=== PATIENT | female | born 1960 | race Caucasian/White ===

== ENCOUNTER → 2020-07-29 | Outpatient (CLI) | payer MEDICARE, OTHER | LOC: HEART 5 11:25 | DX: D86.0 Sarcoidosis of lung (principal); R94.2 Abnormal results of pulmonary function studies | CPT/HCPCS: 71046; 94060; 94729 ==

== ENCOUNTER 2021-01-10 15:05 | Emergency (ER) | payer MEDICARE, OTHER ==
[2021-01-10 16:41] LABS: HEMOGLOBIN 9.8 gm/dl (12.3-15.3); RED BLOOD COUNT 3.43 M/UL (4.00-5.10); WHITE BLOOD COUNT 10.1 K/UL (4.5-11.0)
[2021-01-10 17:02] LABS: BUN/CREATININE RATIO 12 (0-10)
== END 2021-01-10 19:42 | disposition home or self-care (01) ==
LOC: ER1 15:05
PROVIDERS: Emergency Medicine
DX: R07.9 Chest pain, unspecified (principal)
CPT/HCPCS: 71045; 80053; 82550; 82553; 83690; 83735; 83874; 83880; 84484; 85025; 93005; 96374; 99285